=== PATIENT | female | born 1995 | race Caucasian/White ===

== ENCOUNTER 2016-08-10 12:35 | Emergency (ER) | payer OTHER ==
[2016-08-10 13:28] VITALS: RESP 18; TEMP 98.2
--- NOTE | 2016-08-10 13:54 | UCPHY ---
[id number] 4d 08/10/16 13:39 HPI/ROS: CHIEF COMPLAINT: Possible allergic reaction now resolved HISTORY OF PRESENT ILLNESS: 20-year-old female states that when she woke up approximately 11:00 a.m. this morning after drinking bowl of milk as she normally does she developed diffuse itching, urticaria. Her mother recommend she go to the urgent care for evaluation. She has not consumed H1 or H2 antagonist, and notes that her symptoms are now resolved. In the urgent care at this time she is asymptomatic. At no point has she had dyspnea, wheezing, dysphagia, odynophagia, skin blistering, nuchal rigidity. No history of anaphylaxis. REVIEW OF SYSTEMS: A ten point review of systems was performed and is negative with the exception of the items mentioned in the HPI PAST MEDICAL & SURGICAL HISTORY: PTSD. Anxiety. Psoriasis. SOCIAL HISTORY:nonsmoker PHYSICAL EXAM (Prior to examination, patient consented to physical exam, hands were washed and my usual and customary physical exam procedures followed) 1) GENERAL: Well-developed, well-nourished, alert and oriented. Appears to be in no acute distress.Smiling, appears quite well. 2) HEAD: Normocephalic, atraumatic 3) HEENT: Pupils equal, round, reactive to light bilaterally. Sclera anicteric. Nasopharynx, oropharynx, clear, no lesions. No tonsillar glossal enlargement. No trismus no drooling. Ears bilaterally with normal tympanic membranes. 4) NECK: Full range of motion, no meningeal signs. 5) LUNGS: Clear auscultation bilaterally, no wheezes, no rhonchi, no retractions. 6) HEART: Regular rate and rhythm, no murmur, no heave, no gallop. 7) ABDOMEN: No guarding, no rebound, no focal tenderness, 8) MUSCULOSKELETAL: No peripheral edema or discoloration. 9) BACK: No CVA tenderness no rash 10) SKIN: no urticaria rash. Small psoriatic area in the occipital region as well as the right antecubital fossa. However no other lesions visualized. DIFFERENTIAL DIAGNOSIS: No particular include but limited to or urticaria, anaphylaxis, anaphylactoid reaction (Ruben,Giovanni Lashell) Constitutional: Initial Vital Signs Temperature (C) 36.8 C 08/10/16 13:25 Heart Rate 77 08/10/16 13:25 Respiratory Rate 18 08/10/16 13:25 Blood Pressure 139/80 H 08/10/16 13:25 O2 Sat (%) 94 08/10/16 13:25 O2 Delivery Mode Room Air Allergies/Adverse Reactions: latex Allergy (Verified 08/10/16 13:29) pneumococcal vaccine Allergy (Verified 08/10/16 13:29) Home Medications: Medication Instructions Recorded Albuterol 06/22/15 Escitalopram Oxalate 06/22/15 Lutera-28 Tablet 06/22/15 Montelukast Sodium 06/22/15 MDM/Departure - MDM ED Course/Re-evaluation: This patient possibly had a pre-hospital episode of urticaria which has now resolved. At this time she is asymptomatic with no evidence of urticaria, anaphylaxis. She has no skin rash, no respiratory complaints. I think she can be discharged. Recommend she attempt to identify potential allergens. Recommend that if she has return of symptoms she take oral Benadryl and if she develops further symptoms to call 911. She has no history of anaphylaxis or hospitalization for allergic reaction. (Giovanni Miranda) The patient was evaluated and managed by the physician department assistant. I have reviewed this chart and I agree with the findings and plan of care as documented , as indicated by my signature. I am the secondary supervising physician. ( Rabia Odonnell) - Depart Disposition: Home, Routine, Self-Care Clinical Impression: Hives Condition: Good Instructions: Urticaria (ED) Additional Instructions: If you develop return of hives take 25 mg of Benadryl (1 [id number] tablet ). If your symptoms continue or if you develop shortness of breath, tongue swelling or difficulty swallowing, call 911. Referrals: [facility] [Other] - As per Instructions - PQRS PQRS Measurement: n/a (Giovanni Miranda)
[2016-08-10 14:05] VITALS: BP 128/78; PULSE 72; O2SAT 95
== END 2016-08-10 14:05 | disposition home or self-care (01) ==
LOC: CED 12:35
DX: L29.9 Pruritus, unspecified (principal)
CPT/HCPCS: 99213-PO; G0463-PO